=== PATIENT | male | born 2000 | race Caucasian/White ===

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

== ENCOUNTER 2021-06-10 11:34 | Outpatient (CLI) | payer OTHER ==
--- NOTE | 2021-06-10 13:18 | XRAY Report ---
PROCEDURE: Knee 3 View LT INDICATIONS: L KNEE PX TECHNIQUE: 3 views of the left knee(s) were acquired. COMPARISON: None. FINDINGS: Bones: No fractures or dislocations. No suspicious bony lesions. Bone islands noted in the distal f emur and the proximal tibia. Soft tissues: No joint effusion. No suspicious soft tissue calcifications. Subtle serpiginous densi ties noted in the soft tissues of the right lower leg/calf concerning for venous varices. IMPRESSION: 1. No fracture. No osseous lesion. If there persistent symptoms or continued clinical concern for pa thology, then repeat plain film radiographs (7-10 days) or advanced imaging (CT, MR, bone scan) shoul d be considered for further evaluation. 2. Possible left calf venous varices. Please correlate with clinical data. Reviewed by: Renee Garcia MD, PhD on 06/10/2021 1:16 PM PDT Approved by: Renee Garcia MD, PhD on 06/10/2021 1:16 PM PDT Station ID: [id number]
== END 2021-06-10 23:59 | disposition home or self-care (01) ==
LOC: DI.N 11:34
PROVIDERS: ATTEND Family Medicine
DX: M25.562 Pain in left knee (principal); R93.6 Abnormal findings on diagnostic imaging of limbs; R93.89 Abnormal findings on diagnostic imaging of other specified body structures

== ENCOUNTER 2021-06-17 10:53 | Outpatient (CLI) | payer OTHER ==
--- NOTE | 2021-06-17 11:17 | XRAY Report ---
PROCEDURE: Knee 3 View LT INDICATIONS: SPRAIN OF L KNEE TECHNIQUE: 3 views of the left knee(s) were acquired. COMPARISON: Similar study 06/10/2021. FINDINGS: Bones: No fractures or dislocations. No suspicious bony lesions. Soft tissues: No joint effusion. No suspicious soft tissue calcifications. IMPRESSION: No fracture or joint effusion found. No malalignment identified. No intra-articular loos e body seen. Bone island again noted posterior border of the proximal tibial diaphysis just below the metadiaphyseal junction. Reviewed by: Wallace Hughes MD on 06/17/2021 11:16 AM PDT Approved by: Wallace Hughes MD on 06/17/2021 11:16 AM PDT Station ID: [id number]
== END 2021-06-17 23:59 | disposition home or self-care (01) ==
LOC: DI.N 10:53
PROVIDERS: ATTEND Family Medicine
DX: S83.8X2A Sprain of other specified parts of left knee, initial encounter (principal); M89.8X8 Other specified disorders of bone, other site